=== PATIENT | male | born 1990 | race African-American/Black ===

== ENCOUNTER 2016-12-31 14:49 | Emergency (ER) | payer OTHER ==
[~2016-12-31] VITALS: Ht 172.7 cm; Wt 74.4 kg
--- NOTE | 2016-12-31 16:47 | REP ---
Clinical: pain; injury. Technique: Internal rotation, external rotation, and Y view left shoulder. Findings: No acute fracture or dislocation. The acromioclavicular and glenohumeral joints are intact. No periarticular calcifications or degenerative changes are appreciated. Sub acromial space is normal. Surrounding soft tissues are unremarkable. Impression: Normal left shoulder radiographs. Signed by Hardy Castellanos MD 12/31/2016 04:39 P
[2016-12-31 17:15] VITALS: BP 125/68
== END 2016-12-31 17:17 | disposition home or self-care (01) ==
LOC: M ED 14:49
DX: M25.512 Pain in left shoulder (principal)